=== PATIENT | male | born 2000 | race Caucasian/White ===

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

== ENCOUNTER 2020-01-25 15:12 | Emergency (ER) | payer BC ==
[2020-01-25] MEDS ORDERED: Azithromycin 250 MG TAB ONE (15:34)
[2020-01-25] MEDS ORDERED: Lidocaine 1% PF 5 ML VIAL ONE (15:34)
[2020-01-25] MEDS ORDERED: cefTRIAXone\\ROCEPHIN 250 MG VIAL ONE (15:34)
[2020-01-25 16:14] LABS: Bilirubin Negative (Negative); Blood, Urine Negative (Negative); Clarity Clear (Clear); Glucose, Urine (Dipstick) Normal (Negative); Ketone, Urine Negative (Negative); Leukocyte Negative Leu/uL (Negative); Nitrite Negative (Negative); Protein, Urine (Dipstick) Negative (Neg-Trace); Specific Gravity, Urine 1.024 (1.002-1.036); Urobilinogen Normal mg/dL (Less than 2)
[2020-01-27 23:09] LABS: Chlam.trachomatis by PCR,Urine DETECTED (NotDetected)
== END 2020-01-25 16:41 | disposition home or self-care (01) ==
LOC: ERS 15:12
DX: A56.8 Sexually transmitted chlamydial infection of other sites (principal)
CPT/HCPCS: 81003; 87491; 87591; 96372; 99283; J0696